=== PATIENT | female | born 1940 | race Caucasian/White ===

== ENCOUNTER 2023-07-05 01:31 | Emergency (ER) | payer MEDICARE, OTHER ==
[~2023-07-05] VITALS: Ht 154.9 cm; Wt 54.5 kg
[2023-07-05 01:43] VITALS: TEMP 97.8
[2023-07-05] MEDS ORDERED: CHOL200059 PO (01:51)
[2023-07-05] MEDS ORDERED: LEVO125 PO (01:51)
[2023-07-05] MEDS ORDERED: ALEN70TA65 PO (01:51)
[2023-07-05] MEDS ORDERED: ATOR40TA28 PO (01:51)
[2023-07-05] MEDS ORDERED: VALS1TAB81 PO (01:51)
[2023-07-05] MEDS ORDERED: OMEP20 PO (01:51)
[2023-07-05 03:06] LABS: COVID AG,FIA SOURCE NASAL SWAB
[2023-07-05 03:40] LABS: SARS-COV2 (COVID) ANTIGEN,FIA Negative (Negative)
[2023-07-05 03:41] LABS: INFLUENZA TYPE B NEGATIVE FOR TYPE B (NEGATIVE)
[2023-07-05 03:44] LABS: INFLUENZA TYPE A POSITIVE FOR TYPE A (NEGATIVE)
[2023-07-05 05:05] VITALS: BP 124/80; PULSE 71; RESP 20
[2023-07-05] MEDS ORDERED: BENZ-227 PO (05:31)
[2023-07-05] MEDS ORDERED: AZIT-103 PO (05:31)
[2023-07-05] MEDS ORDERED: AZITHROMYCIN 500 MG TABLET PO ONE (05:45)
[2023-07-05] MEDS ORDERED: BENZONATATE 100 MG CAPSULE PO ONE (05:45)
== END 2023-07-05 06:52 | disposition home or self-care (01) ==
LOC: EMS 01:31
DX: J11.1 Influenza due to unidentified influenza virus with other respiratory manifestations (principal); I51.7 Cardiomegaly; J98.11 Atelectasis; I10 Essential (primary) hypertension; Z20.822 Contact with and (suspected) exposure to COVID-19; Z85.850 Personal history of malignant neoplasm of thyroid
CPT/HCPCS: 99284; 71045; 87426; 87804; Q9967